=== PATIENT | male | born 1965 | race Hispanic/Latino ===

== ENCOUNTER 2016-07-19 14:33 | Emergency (ER) | payer MEDICAID, MEDICARE ==
[2016-07-19 14:59] VITALS: BP 143/100; PULSE 95; RESP 18; TEMP 98.5; O2SAT 95; BMI 33.5
--- NOTE | 2016-07-19 15:05 | ED PDOC ---
Arrival/HPI - General Chief Complaint: Lower Extremity Problem/Injury Time Seen by Provider: 07/19/16 14:34 Historian: Patient - History of Present Illness Time/Duration: Other (2-3 months) Symptom Onset: Gradual Symptom Course: Worsening Quality: Cramping Severity Level: Moderate Associated Symptoms (Text): 07/19/16 15:02 Patient complains of a 2-3 month history of bilateral lower extremity, right greater than left, pain numbness and tingling with walking. Patient reports that he walks approximately 50 feet and gets pain and numbness, when he rests the pain and numbness improve, though the numbness never completely goes away. He has bilateral lower extremity stents placed 7 years ago. Both feet are warm. He denies chest pain palpitations or dyspnea, though he has had a myocardial infarction and stent placement. He continues to be a heavy smoker. There is a right great toe amputation years ago. He denies diabetes. Past Medical History - Infectious Disease Hx of Infectious Diseases: None - Tetanus Immunization Tetanus Immunization: Unknown - Past Medical History Past Medical History: No Previous - Cardiac Hx Angina: Yes Hx NM: Yes (x3) Hx Hypertension: Yes Other/Comment: PAD, stents in B/L legs, 6-8 stents in Heart. - Pulmonary Hx Respiratory Disorders: No - Neurological Hx Neurological Disorder: No - HEENT Hx HEENT Disorder: No - Renal Hx Renal Disorder: No - Endocrine/Metabolic Hx Endocrine Disorders: No - Hematological/Oncological Hx Blood Disorders: Yes Hx Hepatitis C: Yes - Integumentary Hx Dermatological Disorder: No - Musculoskeletal/Rheumatological Hx Musculoskeletal Disorders: Yes Hx Back Pain: Yes - Gastrointestinal Hx Gastrointestinal Disorders: No - Genitourinary/Gynecological Hx Genitourinary Disorders: No - Psychiatric Hx Psychophysiologic Disorder: No Hx Anxiety: No Hx Bipolar Disorder: No Hx Depression: No Hx Emotional Abuse: No Hx Hallucinations: No Hx Panic Disorder: No Hx Post Traumatic Stress Disorder: No Hx Psychosis: No Hx Physical Abuse: No Hx Schizophrenia: No Hx Sexual Abuse: No Hx Substance Use: No - Surgical History Hx Cardiac Catheterization: Yes (stents x 12) Hx Coronary Stent: Yes - Anesthesia Hx Anesthesia: Yes Hx Anesthesia Reactions: No Hx Malignant Hyperthermia: No - Suicidal Assessment Feels Threatened In Home Enviroment: No Family/Social History - Physician Review Nursing Documentation Reviewed: Yes Family/Social History: Unknown Family HX Smoking Status: Heavy Smoker > 10 Cigarettes Daily Hx Alcohol Use: No Hx Substance Use: No Hx Substance Use Treatment: No Allergies/Home Meds Allergies/Adverse Reactions: Allergies No Known Allergies Allergy (Verified 07/19/16 14:56) Home Medications: Home Meds Medication Instructions Recorded Confirmed cloNIDine [Catapres] 0.1 mg PO DAILY 12/22/13 07/19/16 Amlodipine Besylate/Benazepril 1 cap PO DAILY 06/20/14 07/19/16 [Amlodipine-Benazepril 10-20 mg] Aspirin [Aspirin EC] 81 mg PO DAILY 06/20/14 07/19/16 Efavirenz/Emtricitabine/Teno 1 tab PO DAILY 06/20/14 07/19/16 [Atripla 600 MG-200 MG-300 MG] Isosorbide Mononitrate [Imdur] 30 mg PO DAILY 06/20/14 07/19/16 Levothyroxine Sodium [Synthroid] 0.15 mg PO DAILY 06/20/14 07/19/16 Pantoprazole [Protonix EC Tab] 40 mg PO DAILY 06/20/14 07/19/16 Ticagrelor [Brilinta] 90 mg PO BID 06/20/14 07/19/16 Review of Systems - Physician Review All systems were reviewed & negative as marked: Yes - Review of Systems Constitutional: Normal Respiratory: Normal Cardiovascular: Normal Gastrointestinal: Normal Musculoskeletal: absent: Back Pain, Neck Pain Skin: Normal Neurological: Normal Physical Exam Vital Signs Temp Pulse Resp BP Pulse Ox 07/19/16 14:53 98.5 F 95 H 18 143/100 H 95 Temperature: Afebrile Blood Pressure: Hypertensive Pulse: Regular Respiratory Rate: Normal Appearance: Positive for: Well-Appearing, Non-Toxic, Comfortable Pain Distress: None Mental Status: Positive for: Alert and Oriented X 3 - Systems Exam Head: Present: Atraumatic, Normocephalic Pupils: Present: PERRL Extroacular Muscles: Present: EOMI Conjunctiva: Present: Normal Neck: Present: Normal Range of Motion Respiratory/Chest: Present: Clear to Auscultation, Good Air Exchange. No: Respiratory Distress, Accessory Muscle Use Cardiovascular: Present: Regular Rate and Rhythm, Normal S1, S2. No: Murmurs Abdomen: Present: Normal Bowel Sounds. No: Tenderness, Distention, Peritoneal Signs, Rebound, Guarding Back: Present: Normal Inspection. No: CVA Tenderness, Midline Tenderness, Paraspinal Tenderness Upper Extremity: Present: Normal Inspection. No: Cyanosis, Edema Lower Extremity: Present: Normal Inspection, Other (Right great toe amputation. No skin changes. Both feet are warm. No palpable pulses, but Doppler pulses.). No: Edema Neurological: Present: GCS=15, CN II-XII Intact, Speech Normal, Motor Func Grossly Intact Skin: Present: Warm, Dry, Normal Color. No: Rashes Psychiatric: Present: Alert, Oriented x 3, Normal Insight, Normal Concentration Medical Decision Making ED Course and Treatment: 07/19/16 15:05 EKG shows normal sinus rhythm rate approximately 90 with unifocal PVCs and no acute ST or T-wave changes with poor R-wave progression different from 201407/19/16 15:45 Discussed in detail with the patient that he will need to follow up with a vascular surgeon. - Lab Interpretations Lab Results: 07/19/16 15:00 07/19/16 15:00 Lab Results 07/19/16 15:00: Sodium 136, Potassium 4.0, Chloride 98, Carbon Dioxide 27, Anion Gap 15, BUN 11, Creatinine 0.7, Est GFR ( Amer) > 60, Est GFR (Non- Af Amer) > 60, Random Glucose 134 H, Calcium 9.7, Total Bilirubin 0.6, AST 39, ALT 26, Alkaline Phosphatase 112, Lactate Dehydrogenase 505, Total Creatine Kinase 244 H, CK-MB (CK-2) 1.7, CK-MB (CK-2) % Cancelled, Troponin I < 0.01 D, Total Protein 8.1, Albumin 4.4, Globulin 3.7, Albumin/Globulin Ratio 1.2 07/19/16 15:00: PT 10.9, INR 1.01, APTT 30.1 07/19/16 15:00: WBC 11.0 D, RBC 4.33, Hgb 13.9 L, Hct 39.2 L, MCV 90.5, MCH 32.1, MCHC 35.5, RDW 14.0, Plt Count 274, MPV 10.6, Gran % 74.6 H, Lymph % (Auto ) 20.3 L, [place] % (Auto) 4.4, Eos % (Auto) 0.5 L, Baso % (Auto) 0.2, Gran # 8.22 H, Lymph # 2.2, [place] # 0.5, Eos # 0.1, Baso # 0.02 - Medication Orders Current Medication Orders: Discontinued Medications Acetaminophen (Tylenol 325mg Tab) 975 mg PO STAT STA Stop: 07/19/16 15:46 Last Admin: 07/19/16 15:52 Dose: 975 mg Disposition/Present on Arrival - Present on Arrival Any Indicators Present on Arrival: No History of DVT/PE: No History of Uncontrolled Diabetes: No Urinary Catheter: No History of Decub. Ulcer: No History Surgical Site Infection Following: None - Disposition Have Diagnosis and Disposition been Completed?: Yes Diagnosis: Intermittent claudication of both lower extremities due to atherosclerosis Disposition: HOME/ ROUTINE Disposition Time: 15:46 Patient Plan: Discharge Condition: GOOD Discharge Instructions (ExitCare): Peripheral Vascular Disease (ED) Referrals: PCP,NO [Primary Care Provider] - Follow up with primary Huseyin Vital MD [Staff Provider] - Follow up with primary
[2016-07-19 15:11] LABS: ADD MANUAL DIFF? NO
[2016-07-19 15:24] LABS: BASO # 0.02 K/mm3 (0.0-2.0); BASO % 0.2 % (0.0-3.0); EOS # 0.1 (0.0-0.7); EOS % 0.5 % (1.5-5.0); GRAN # 8.22 (1.4-6.5); GRAN % 74.6 % (50.0-68.0); HEMATOCRIT 39.2 % (42.0-52.0); LYMPH # 2.2 (1.2-3.4); LYMPH % 20.3 % (22.0-35.0); MEAN CELL VOLUME 90.5 fL (80.0-105.0); MEAN CORPUSCULAR HEMOGLOBIN 32.1 pg (25.0-35.0); MEAN CORPUSCULAR HGB CONC 35.5 g/dl (31.0-37.0); MEAN PLATELET VOLUME 10.6 fl (7.0-11.0); MONO # 0.5 (0.1-0.6); MONO % 4.4 % (1.0-6.0); PLATELET COUNT 274 10^3/uL (120.0-450.0)
[2016-07-19 15:29] LABS: ALB/GLOB RATIO 1.2 (1.1-1.8); ALKALINE PHOSPHATASE 112 U/L (38-133); ALT/SGPT 26 U/L (7-56); AST/SGOT 39 U/L (15-59); BILIRUBIN,TOTAL 0.6 mg/dL (0.2-1.3); BLOOD UREA NITROGEN 11 mg/dL (7-21); CALCIUM 9.7 mg/dL (8.4-10.5); CARBON DIOXIDE 27 mmol/L (21-33); CHLORIDE 98 mmol/L (98-107); GFR AFRICAN-AMERICAN > 60; GLUCOSE,RANDOM 134 mg/dL (70-110); SODIUM 136 mmol/L (132-148); TOTAL PROTEIN 8.1 g/dL (5.8-8.3)
[2016-07-19 15:30] LABS: INR 1.01 (0.93-1.08); PARTIAL THROMBOPLASTIN TIME 30.1 Seconds (23.7-30.8)
[2016-07-19 15:41] LABS: TROPONIN I < 0.01 ng/mL
--- NOTE | 2016-07-20 01:01 | CARD ---
APPROVED REPORT EKG Measurement Heart [id number] <Conclusion> Sinus rhythm with occasional premature ventricular complexes Septal infarct, age undetermined Lateral infarct, age undetermined Inferior infarct, age undetermined Abnormal ECG
== END 2016-07-19 15:58 | disposition home or self-care (01) ==
LOC: ED 14:33
DX: I70.213 Atherosclerosis of native arteries of extremities with intermittent claudication, bilateral legs (principal); I25.2 Old myocardial infarction; I10 Essential (primary) hypertension; F17.210 Nicotine dependence, cigarettes, uncomplicated